=== PATIENT | female | born 1970 | race Caucasian/White ===

== ENCOUNTER 2016-05-22 15:43 | Emergency (ER) | payer MEDICAID ==
[~2016-05-22] VITALS: Ht 157.5 cm; Wt 75.7 kg
[2016-05-22 20:30] VITALS: BP 116/87
== END 2016-05-22 20:30 | disposition home or self-care (01) ==
LOC: ED 15:43
DX: M25.511 Pain in right shoulder (principal); G89.29 Other chronic pain; M54.5 Low back pain; M25.572 Pain in left ankle and joints of left foot; M25.561 Pain in right knee

== ENCOUNTER 2019-03-17 11:43 | Emergency (ER) | payer MEDICAID ==
[~2019-03-17] VITALS: Ht 157.5 cm; Wt 73.5 kg
[2019-03-17 12:07] VITALS: Ht 157.5 cm; Wt 73.5 kg
[2019-03-17 16:35] VITALS: BP 130/81
== END 2019-03-17 16:35 | disposition home or self-care (01) ==
LOC: ED 11:43
DX: J11.1 Influenza due to unidentified influenza virus with other respiratory manifestations (principal); Z98.51 Tubal ligation status
CPT/HCPCS: 87804; J1885

== ENCOUNTER 2020-02-10 19:49 | Emergency (ER) | payer MEDICAID, SELFPAY ==
[~2020-02-10] VITALS: Ht 157.5 cm; Wt 69.9 kg
[2020-02-10 19:51] VITALS: BP 134/64; Ht 157.5 cm; Wt 69.9 kg
== END 2020-02-10 20:50 | disposition home or self-care (01) ==
LOC: ED 19:49
DX: U07.1 COVID-19 (principal); Z98.890 Other specified postprocedural states
CPT/HCPCS: U0003